=== PATIENT | female | born 1960 | race Caucasian/White ===

== ENCOUNTER 2016-10-02 11:09 | Day surgery (SDC) | payer OTHER ==
[2016-10-02] MEDS ORDERED: ONDANSETRON 4 MG/2 ML VIAL ONE (11:33)
[2016-10-02] MEDS ORDERED: LACTATED RINGERS 1,000 ML IV ONE ×2 (11:37→14:20)
[2016-10-02] MEDS ORDERED: MIDAZOLAM 2 MG/2 ML VIAL IVP ONE (14:09)
[2016-10-02] MEDS ORDERED: fentaNYL 100 MCG/2 ML VIAL IVP ONE (14:09)
== END 2016-10-02 11:10 | disposition home or self-care (01) ==
PROC: 0DBP8ZX Excision of Rectum, Via Natural or Artificial Opening Endoscopic, Diagnostic (ICD-10-PCS; 2016-10-02)
PROC: 0DBH8ZX Excision of Cecum, Via Natural or Artificial Opening Endoscopic, Diagnostic (ICD-10-PCS; principal; 2016-10-02 13:30)
DX: Z12.11 Encounter for screening for malignant neoplasm of colon (principal); D12.0 Benign neoplasm of cecum; K62.1 Rectal polyp; K57.30 Diverticulosis of large intestine without perforation or abscess without bleeding; K64.8 Other hemorrhoids; Z80.0 Family history of malignant neoplasm of digestive organs; F17.210 Nicotine dependence, cigarettes, uncomplicated; E03.9 Hypothyroidism, unspecified
CPT/HCPCS: 45380; J7120

== ENCOUNTER 2017-01-31 12:01 | Outpatient (CLI) | payer OTHER ==
--- NOTE | 2017-01-31 15:54 | XRAY Report ---
TWO VIEW CHEST: 01/31/2017 CLINICAL INDICATION: Cough. FINDINGS: Frontal and lateral views of the chest are compared to previous films of 04/14/2015. The cardiac silhouette is within normal limits. Postoperative changes in the left axilla are stable. The lungs are clear. No effusion or pneumothorax is present. IMPRESSION: NORMAL CHEST, UNCHANGED. JOB #: [id number] EXT JOB #:[id number]
== END 2017-01-31 12:02 | disposition home or self-care (01) ==
LOC: DI.S 12:01
PROVIDERS: ATTEND Physician Assistant
DX: R05 Cough (principal); F17.200 Nicotine dependence, unspecified, uncomplicated
CPT/HCPCS: 71020

== ENCOUNTER 2017-11-14 12:02 | Outpatient (CLI) | payer OTHER ==
--- NOTE | 2017-11-14 14:28 | CT Report ---
Procedure Date: 11/14/2017 Accession Number: [id number] / [id number] Procedure: CT - Sinuses CPT Code: FULL RESULT: EXAM: Sinuses 11/14/2017 12:46 PM CLINICAL INDICATION: Headache, sinusitis COMPARISON: None TECHNIQUE: Axial CT images of the paranasal sinuses were obtained without oral or intravenous contrast. Sagittal and coronal reconstructions were performed. FINDINGS: There is minimal mucosal thickening in the left maxillary sinus posteriorly. The remaining paranasal sinuses are unremarkable. No mucosal thickening or air-fluid level is appreciated. No osseous destruction is seen. The septum is midline. The ostiomeatal units are patent bilaterally. IMPRESSION: Minimal left maxillary mucosal thickening. CT DOSE REDUCTION STATEMENT In accordance with CT protocol optimization, one or more of the following were used for this exam: automated exposure control, adjustment of mA and or KV based on patient size, or use of iterative reconstructive technique.
== END 2017-11-14 12:03 | disposition home or self-care (01) ==
LOC: DI 12:02
PROVIDERS: ATTEND Internal Medicine
DX: J01.90 Acute sinusitis, unspecified (principal); R51 Headache
CPT/HCPCS: 70486

== ENCOUNTER 2019-04-25 13:40 | Outpatient (CLI) | payer OTHER ==
--- NOTE | 2019-04-28 11:06 | Mammography Report ---
Reason: SCREENING MAMMO Procedure Date: 04/25/2019 Accession Number: [id number] / [id number] Procedure: MGS - Screening Mammo Dig Bilat CPT Code: Final Report FULL RESULT: EXAM: Screening Mammo Dig Bilat DATE: 04/25/2019 2:05 PM CLINICAL HISTORY: The patient is an asymptomatic 58-year-old female. Second degree family history of breast cancer. TECHNIQUE: (B) - Bilateral CC and MLO views were obtained. COMPARISON: 04/10/2017, 11/29/2013 and 12/14/2011 PARENCHYMAL PATTERN: (A) - The breasts demonstrate scattered fibroglandular densities bilaterally. FINDINGS: RIGHT BREAST: Technical limitations (nipple out of profile). LEFT BREAST: There are no suspicious masses, calcifications, or areas of distortion. IMPRESSION: RIGHT BREAST: Technical Repeat. BI-RADS Category 0 LEFT BREAST: Negative examination. BI-RADS category 1. RECOMMENDATION: RIGHT BREAST: The patient should be recalled to undergo repeat CC and MLO views - with nipple in profile. LEFT BREAST: Routine screening mammography. BI-RADS CATEGORY: (0) - Incomplete Examination - need additional evaluation. STANDARD QUALIFYING STATEMENTS: 1. This examination was not reviewed with the aid of Computer-Aided Detection (CAD). 2. A negative or benign imaging report should not preclude biopsy if clinically suspicious findings are present. 3. Dense breasts may obscure an underlying neoplasm. 4. This examination was reviewed with the aid of 3D breast imaging (tomosynthesis).
== END 2019-04-25 13:41 | disposition home or self-care (01) ==
LOC: DI.S 13:40
DX: Z12.31 Encounter for screening mammogram for malignant neoplasm of breast (principal); Z80.3 Family history of malignant neoplasm of breast
CPT/HCPCS: 77067

== ENCOUNTER 2019-04-30 12:44 | Outpatient (CLI) | payer OTHER ==
--- NOTE | 2019-04-30 13:48 | CT Report ---
Reason: SCREENING FOR LUNG CA Procedure Date: 04/30/2019 Accession Number: [id number] / [id number] Procedure: CT - Low Dose Lung Cancer Screen CPT Code: Final Report FULL RESULT: EXAM CT LUNG SCREEN EXAM DATE: 04/30/2019 01:13 PM. HISTORY: 58-year-old patient with smoking history. COMPARISON: None. TECHNIQUE: CT examination of the entire thorax without contrast was performed using low-dose technique. Thin section coronal, axial, sagittal and MIP axial images were obtained. In accordance with CT protocol optimization, one or more of the following dose reduction techniques were utilized for this exam: automated exposure control, adjustment of mA and/or KV based on patient size, or use of iterative reconstructive technique. FINDINGS: Nodules: Right upper lobe: 0.6 x 0.4 cm noncalcified solid upper lobe nodule (4/75). Right middle lobe: None. Right lower lobe: None. Left upper lobe: None. Left lower lobe: Linear scarring/atelectasis. No infiltrate or nodule. Emphysema: None. Pleura: Unremarkable. Aorta: Mild aortic calcification. Mediastinum: Unremarkable. Coronary calcifications: Mild left anterior descending coronary calcification. Other pulmonary findings: None. Other extrapulmonary findings: Left axillary lymph node dissection clips. IMPRESSION: Lung-RADS ASSESSMENT CATEGORY: 3 - probably benign Probability of malignancy: 1-2% RECOMMENDATION: Recommend follow-up low-dose CT in 6 months. RADIA
== END 2019-04-30 12:45 | disposition home or self-care (01) ==
LOC: DI 12:44
PROVIDERS: ATTEND Physician Assistant
DX: Z12.2 Encounter for screening for malignant neoplasm of respiratory organs (principal); F17.210 Nicotine dependence, cigarettes, uncomplicated

== ENCOUNTER 2019-05-07 13:46 | Outpatient (CLI) | payer OTHER ==
--- NOTE | 2019-05-07 16:04 | Mammography Report ---
Reason: TECHNICAL REPEAT - ROUTINE MAMMO Procedure Date: 05/07/2019 Accession Number: [id number] / [id number] Procedure: MGS - Screening Mammo Dig Bilat CPT Code: Final Report FULL RESULT: EXAM: Screening mammogram - technical repeat - right breast DATE: 05/07/2019 1:55 PM CLINICAL HISTORY: Screening mammogram, recalled for repeat right mammographic views (positioning) TECHNIQUE: (R) - Right CC and MLO views were obtained. PARENCHYMAL PATTERN: (A) - The breast demonstrates scattered fibroglandular densities bilaterally. FINDINGS: There are no suspicious masses, calcifications, or areas of distortion. IMPRESSION: Negative examination. BI-RADS category 1. RECOMMENDATION: (ANNUAL) - Recommend routine annual screening mammography. BI-RADS CATEGORY: (1) - Negative. STANDARD QUALIFYING STATEMENTS: 1. This examination was reviewed with the aid of Computer-Aided Detection (CAD). 2. A negative or benign imaging report should not preclude biopsy if clinically suspicious findings are present. 3. Dense breasts may obscure an underlying neoplasm.
== END 2019-05-07 13:47 | disposition home or self-care (01) ==
LOC: DI.S 13:46
DX: Z12.31 Encounter for screening mammogram for malignant neoplasm of breast (principal)
CPT/HCPCS: 77067

== ENCOUNTER 2021-01-16 13:06 | Outpatient (CLI) | payer OTHER ==
--- NOTE | 2021-01-17 09:22 | Mammography Report ---
BILATERAL DIGITAL SCREENING MAMMOGRAM 3D/2D: 01/16/2021 CLINICAL: Family history of breast cancer. Comparison is made to exams dated: 05/07/2019 mammogram, 04/25/2019 mammogram, 04/10/2017 mammogram, a nd 10/29/2013 mammogram - [facility]. There are scattered fibroglandular elements i n both breasts. There is a focal asymmetry in the left breast at 6 o'clock in the retroareolar region. This is more prominent. No other significant masses, calcifications, or other findings are seen in either breast. IMPRESSION: INCOMPLETE: NEEDS ADDITIONAL IMAGING EVALUATION The focal asymmetry in the left breast is indeterminate. Additional views with possible ultrasound are recommended. This exam was interpreted at Station ID: [id number]. NOTE: For mammograms, a report in lay terms will be sent to the patient. Approximately 15% of breast malignancies will not be visualized mammographically. In the management of a palpable breast mass, a negative mammogram must not discourage biopsy of a clinically suspicious lesion. Electronically Signed By: Ashwin Mott M.D. slc/:01/17/2021 07:54:25 ACR BI-RADS Category 0: Incomplete 3340F PARENCHYMAL PATTERN: (A) - The breast(s) demonstrate(s) scattered fibroglandular densities. BI-RADS CATEGORY: (0) - 0 Mammo and [place] [id number] Immediate follow-up LATERALITY: (B)
== END 2021-01-16 13:07 | disposition home or self-care (01) ==
LOC: DI.S 13:06
DX: Z12.31 Encounter for screening mammogram for malignant neoplasm of breast (principal); R92.8 Other abnormal and inconclusive findings on diagnostic imaging of breast; Z80.3 Family history of malignant neoplasm of breast

== ENCOUNTER 2021-01-29 11:42 | Outpatient (CLI) | payer OTHER ==
[2021-01-29] MEDS ORDERED: IOPAMIDOL-300 50 ML VIAL ONE (12:07)
[2021-01-29] MEDS ORDERED: IOVERSOL 320 50 ML VIAL ONE (12:07)
[2021-01-29 12:39] LABS: ALBUMIN 4.4 g/dL (3.2-5.5); ALBUMIN/GLOBULIN RATIO 1.7 (1.0-2.2); BILIRUBIN,TOTAL 0.8 mg/dL (0.2-1.0); CALCIUM 8.9 mg/dL (8.5-10.3); CREATININE 0.8 mg/dL (0.4-1.0); POTASSIUM 4.1 mmol/L (3.5-5.0)
[2021-01-29] MEDS ORDERED: IOPAMIDOL-300 50 ML VIAL IVP ONE (14:11)
[2021-01-29] MEDS ORDERED: IOVERSOL 320 50 ML VIAL PO ONE (14:12)
--- NOTE | 2021-01-29 16:50 | CT Report ---
PROCEDURE: Abdomen/Pelvis W INDICATIONS: DIARRHEA CONTRAST: IV CONTRAST: Isovue 300 ml: 100 PO CONTRAST: Optiray 320 ml50 TECHNIQUE: After the administration of 100 mL Isovue-300 contrast, 5 mm thick sections acquired from the diaphra gms to the symphysis. 5 mm thick coronal and sagittal reformats were acquired. For radiation dose r eduction, the following was used: automated exposure control, adjustment of mA and/or kV according t o patient size. COMPARISON: None. FINDINGS: Image quality: Excellent. ABDOMEN: Lung bases: Lung bases are clear. Heart size is normal. Solid organs: Liver and spleen are normal in size and enhancement. Gallbladder normal. Biliary sys tem is non dilated. Pancreas enhances normally. No adrenal nodules. Kidneys demonstrate normal siz e and enhancement, without hydronephrosis. Peritoneum and bowel: Bowel loops demonstrate normal wall thickness and caliber. Moderate colonic s tool were noted. Normal appendix. No free fluid or air. Nodes and vessels: No retroperitoneal or mesenteric adenopathy by size criteria. Aorta and inferior vena cava are normal in size. Vascular calcification of the aorta. Miscellaneous: No ventral hernias. PELVIS: Genitourinary: Bladder wall thickness is normal. 4.9 x 4.3 x 4.2 cm solid right adnexal mass. Uteru s is anteverted. Miscellaneous: No inguinal hernias or adenopathy. Bones: No suspicious bony lesions. No vertebral body compression fractures. Left total hip arthrop lasty. Degenerative changes of the right hip. Degenerative changes of the spine. IMPRESSION: 1. No acute intra-abdominal abnormality. 2. Solid 4.9 cm right adnexal mass. Recommend further evaluation with follow-up ultrasound. Reviewed by: Fausto Ortez on 01/29/2021 3:49 PM CRISTIAN Approved by: Fausto Ortez on 01/29/2021 3:49 PM AKBENNIE Station ID: [id number]
== END 2021-01-29 11:43 | disposition home or self-care (01) ==
LOC: DI 11:42
PROVIDERS: ATTEND Nurse Practitioner Family
DX: R19.7 Diarrhea, unspecified (principal); R19.09 Other intra-abdominal and pelvic swelling, mass and lump
CPT/HCPCS: 36415; 74177; 80053; Q9967

== ENCOUNTER 2021-02-09 15:22 | Outpatient (CLI) | payer OTHER ==
--- NOTE | 2021-02-09 16:35 | Ultrasound Report ---
PROCEDURE: Pelvic w/Transvaginal INDICATIONS: PELVIC MASS TECHNIQUE: Real-time scanning was performed of the pelvic organs, with image documentation. Additional endovagi nal scanning was necessary due to incomplete visualization of the adnexal and endometrial structures by transabdominal scanning. COMPARISON: CT abdomen/pelvis 01/29/2021. FINDINGS: No pathologic free abdominal or pelvic fluid. Uterus: Uterus is normal in size at 6.2 x 2.2 x 3.4 cm. The endometrium measures 3 mm in combined t hickness. Ovaries: A 5.2 x 3.6 x 4.9 cm lesion is seen in the right adnexa with dense posterior shadowing that may represent the right ovary versus an adnexal mass. The left ovary measures 1.3 x 0.7 x 1.2 cm, an d appears normal. IMPRESSION: The previously seen solid right adnexal lesion measures approximately 5.2 x 3.6 x 4.9 cm on ultrasoun d with dense posterior shadowing that Limited sonographic evaluation. The right ovary is not definite ly seen separate from this lesion. 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 Reviewed by: Andrey Mao MD on 02/09/2021 4:34 PM PDT Approved by: Andrey Mao MD on 02/09/2021 4:34 PM PDT Station ID: [id number]
== END 2021-02-09 15:23 | disposition home or self-care (01) ==
LOC: DI 15:22
PROVIDERS: ATTEND Nurse Practitioner Family
DX: R93.89 Abnormal findings on diagnostic imaging of other specified body structures (principal)

== ENCOUNTER 2021-02-10 12:26 | Outpatient (CLI) | payer OTHER ==
--- NOTE | 2021-02-11 10:35 | Ultrasound Report ---
LIMITED ULTRASOUND OF LEFT BREAST: 02/10/2021 CLINICAL: Patient returns today to evaluate a focal asymmetry in the left breast. Comparison is made to exams dated: 02/10/2021 mammogram, 01/16/2021 mammogram, 05/07/2019 mammogram, mammogram, 04/10/2017 mammogram, and 10/29/2013 mammogram - [facility]. Color flow and real-time ultrasound of the left breast 12-3 o'clock, and retroareolar regions were p erformed on the areas of interest. Gill scale images of the real-time examination were reviewed. There is a 0.8 cm x 0.3 cm x 0.7 cm hypoechoic structure likely representing a dilated duct in the le ft breast at 1 o'clock in the retroareolar region. This may correlate with mammography findings. Co jacky flow imaging demonstrates that there is no vascularity present. IMPRESSION: PROBABLY BENIGN The 0.8 cm x 0.3 cm x 0.7 cm dilated duct in the left breast is probably benign. Follow-up mammogram and ultrasound in 6 months are recommended. A follow-up mammogram and an ultrasound in 6 months are recommended to demonstrate stability. This exam was interpreted at Station ID: [id number]. Electronically Signed By: Ga Rea M.D. ddmegan/:02/10/2021 14:06:12 Ultrasound BI-RADS: 3 Probably benign BI-RADS CATEGORY: (3) - 3 Mammo and US [id number] 6 month follow-up LATERALITY: (B)
--- NOTE | 2021-02-11 10:35 | Mammography Report ---
UNILATERAL LEFT DIGITAL DIAGNOSTIC MAMMOGRAM 3D/2D: 02/10/2021 CLINICAL: Patient returns today to evaluate a focal asymmetry in the left breast. Comparison is made to exams dated: 01/16/2021 mammogram, 05/07/2019 mammogram, 04/25/2019 mammogram, 1 06/10/2016 mammogram, 10/29/2013 mammogram, and 12/14/2011 mammogram - [facility]. The re are scattered fibroglandular elements in left breast. There is an oval equal density focal asymmetry with an indistinct margin in the left breast at 5 o'cl ock in the retroareolar region. No other significant masses or calcifications are seen in the breast. IMPRESSION: INCOMPLETE: NEEDS ADDITIONAL IMAGING EVALUATION The oval equal density focal asymmetry in the left breast is indeterminate. An ultrasound is recomme nded. Ultrasound will be performed immediately following the current exam. This exam was interpreted at Station ID: [id number]. NOTE: For mammograms, a report in lay terms will be sent to the patient. Approximately 15% of breast malignancies will not be visualized mammographically. In the management of a palpable breast mass, a negative mammogram must not discourage biopsy of a clinically suspicious lesion. Electronically Signed By: Ga Rea M.D. ddp/:02/10/2021 13:21:14 ACR BI-RADS Category 0: Incomplete 3340F PARENCHYMAL PATTERN: (A) - The breast(s) demonstrate(s) scattered fibroglandular densities. BI-RADS CATEGORY: (0) - 0 Ultrasound [id number] Immediate follow-up LATERALITY: (B)
== END 2021-02-10 12:27 | disposition home or self-care (01) ==
LOC: DI 12:26
PROVIDERS: ATTEND Nurse Practitioner Family
DX: R92.8 Other abnormal and inconclusive findings on diagnostic imaging of breast (principal)

== ENCOUNTER 2021-07-04 16:31 | Emergency (ER) | payer OTHER ==
--- NOTE | 2021-07-04 16:57 | ED Physician Documentation ---
PD HPI ABD PAIN - Stated complaint Stated Complaint: S/P SX, ABD PAIN - Chief complaint Chief Complaint: Abd Pain - History obtained from History obtained from: Patient - Additional information Additional information: She had a laparoscopic oophorectomy on Sunday, has not had any bowel movements or flatus since albeit did have some diarrheal discharge last night after taking stool softeners and laxatives. She feels quite bloated and like she cannot get anything out. Denies fevers or chills. Only prior abdominal surgery was liposuction. Pathology is not yet known. Review of Systems Ten Systems: 10 systems reviewed and negative Constitutional: denies: Fever, Chills Cardiac: reports: Reviewed and negative Respiratory: reports: Reviewed and negative PD PAST MEDICAL HISTORY - Past Medical History Cardiovascular: None Respiratory: None Endocrine/Autoimmune: HyPOthyroidism GI: None : None HEENT: None Psych: Anxiety Musculoskeletal: None Derm: Other - Past Surgical History Past Surgical History: No Ortho: Hip replacement HEENT: Tonsil/Adenoidectomy Derm: Skin cancer surgery - Present Medications Home Medications: Ambulatory Orders Medication Instructions Recorded Confirmed Levothyroxine [Synthroid] 50 mcg PO QDAC 09/29/16 10/02/16 Montelukast [Singulair] 10 mg PO DAILY 09/29/16 10/02/16 Lactulose [Generlac] 10 gm PO Q6H PRN #150 ml 07/04/21 Metoclopramide [Reglan] 10 mg PO Q6H PRN #20 tablet 07/04/21 - Allergies Allergies/Adverse Reactions: Allergies Allergy/AdvReac Type Severity Reaction Status Date / Time oxycodone [Oxycodone] AdvReac Intermediate severe Verified 12/13/12 14:53 headache - Social History Does the pt smoke?: Yes Smoking Status: Current every day smoker Does the pt drink ETOH?: Yes (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.) Does the pt have substance abuse?: No - Immunizations Immunizations are current?: No Immunizations: TDAP >10years/unknown - POLST Patient has POLST: No PD ED PE NORMAL - Vitals Vital signs reviewed: Yes - General General: Alert and oriented X 3, Other (He appears uncomfortable and in pain) - HEENT HEENT: PERRL, EOMI - Neck Neck: Supple, no meningeal sign, No bony TTP - Cardiac Cardiac: RRR, No murmur - Respiratory Respiratory: No respiratory distress, Clear bilaterally - Abdomen Abdomen: Soft, Other (Bowel sounds, mild diffuse tenderness without peritoneal signs, laparoscopic incisions are dressed with small heart-shaped bandages.) - Back Back: No CVA TTP, No spinal TTP - Derm Derm: Normal color, Warm and dry - Extremities Extremities: No edema, No calf tenderness / cord - Neuro Neuro: Alert and oriented X 3, Normal speech Results - Vitals Vitals: Vital Signs - 24 hr 07/04/21 07/04/21 16:41 19:00 Temperature 36.5 C Heart Rate 73 94 Respiratory 18 16 Rate Blood Pressure 145/51 H 120/58 L O2 Saturation 100 99 Oxygen O2 Source Room air - Labs Labs: Laboratory Tests 07/04/21 07/04/21 17:18 17:18 WBC 5.7 RBC 3.69 L Hgb 11.1 L Hct 34.0 L MCV 92.1 MCH 30.1 MCHC 32.6 RDW 12.6 Plt Count 227 MPV 9.6 Neut # (Auto) 3.3 Lymph # (Auto) 1.6 [place] # (Auto) 0.5 Eos # (Auto) 0.2 Baso # (Auto) 0.0 Absolute Nucleated RBC 0.00 Nucleated RBC % 0.0 Sodium 140 Potassium 3.9 Chloride 103 Carbon Dioxide 28 Anion Gap 9.0 BUN 13 Creatinine 1.0 Estimated GFR (MDRD) 56 L Glucose 93 Calcium 9.0 PD MEDICAL DECISION MAKING - ED course ED course: 60-year-old woman with postoperative ileus versus SBO. CT imaging negative for SBO and she was feeling better after some IV fluids, Toradol, and Reglan. She kept fluids down and was prescribed some more Reglan as well as a stronger laxative than what she was taking at home. Departure - Departure Disposition: Home, Self Care Clinical Impression: Postoperative ileus Condition: Good Record reviewed to determine appropriate education?: Yes Instructions: Ileus Prescriptions: Lactulose [Generlac] 10 gm PO Q6H PRN #150 ml PRN Reason: Constipation Metoclopramide [Reglan] 10 mg PO Q6H PRN #20 tablet PRN Reason: nausea or headache Comments: Your prescription should be waiting for you tomorrow at [facility] in [place]. I would do a clear liquid diet for the next 24 hours, after that you can slowly get back to a regular diet. Return for new or worsening symptoms. Follow-up with your surgeon as scheduled, but I would call her tomorrow and let her know that you were here tonight. You can let her know that a CAT scan of your belly was basically normal as read by the radiologist, that said to my eye it did show excessive fluid in the gastrium for which we gave you IV Reglan and a prescription for that as well. Discharge Date/Time: 07/04/21 19:19
[2021-07-04] MEDS ORDERED: IOVERSOL 320 100 ML VIAL IVP ONE (17:20)
[2021-07-04] MEDS: SODIUM CHLORIDE 0.9% 1,000 ML IV STA (17:24)
[2021-07-04] MEDS: KETOROLAC 15 MG/ML VIAL IVP STA (17:24)
[2021-07-04 17:27] LABS: BASOPHILS % (AUTO) 0.7 %; EOSINOPHILS # (AUTO) 0.2 10^3/uL (0.0-0.7); HGB - HEMOGLOBIN 11.1 g/dL (12.0-16.0); LYMPHOCYTES # (AUTO) 1.6 10^3/uL (1.5-3.5); LYMPHOCYTES % (AUTO) 28.3 %; MEAN CORPUSCULAR HEMOGLOBIN 30.1 pg (27.0-31.0); MEAN CORPUSCULAR HGB CONC 32.6 g/dL (32.0-36.0); MEAN CORPUSCULAR VOLUME 92.1 fL (81.0-99.0); MEAN PLATELET VOLUME 9.6 fL (7.9-10.8); MONOCYTES # (AUTO) 0.5 10^3/uL (0.0-1.0); MONOCYTES % (AUTO) 9.4 %; NEUTROPHILS # (AUTO) 3.3 10^3/uL (1.5-6.6); NEUTROPHILS % (AUTO) 58.4 %; PLT - PLATELET COUNT 227 10^3/uL (130-450); RED BLOOD COUNT 3.69 10^6/uL (4.20-5.40); RED CELL DISTRIBUTION WIDTH 12.6 % (12.0-15.0); WHITE BLOOD COUNT 5.7 x10^3/uL (4.8-10.8)
[2021-07-04 17:37] LABS: POTASSIUM 3.9 mmol/L (3.5-5.0)
[2021-07-04] MEDS: IOVERSOL 320 100 ML VIAL IVP ONE (18:18)
[2021-07-04] MEDS: METOCLOPRAMIDE 10 MG/2 ML VIAL IVP STA (18:20)
--- NOTE | 2021-07-04 18:58 | CT Report ---
PROCEDURE: Abdomen/Pelvis W INDICATIONS: IV only, post op ileus vs sbo CONTRAST: IV CONTRAST: Optiray 320 ml: 100 PO CONTRAST: *NO PO CONTRAST TECHNIQUE: After the administration of contrast, 5 mm thick sections acquired from the diaphragms to the sym physis. 5 mm thick coronal and sagittal reformats were acquired. For radiation dose reduction, the following was used: automated exposure control, adjustment of mA and/or kV according to patient size . COMPARISON: 01/29/2021 FINDINGS: Image quality: Excellent. ABDOMEN: Lung bases: Linear atelectasis in left lung base. The lung bases are otherwise clear. Heart size is normal. Solid organs: Liver and spleen are normal in size and enhancement. Gallbladder is normal Biliary s ystem is non dilated. Pancreas enhances normally. No adrenal nodules. Kidneys demonstrate normal s ize and enhancement, without hydronephrosis. Peritoneum and bowel: Bowel loops demonstrate normal wall thickness and caliber. No free fluid or a ir. The appendix is normal. Nodes and vessels: No retroperitoneal or mesenteric adenopathy by size criteria. Aorta and inferior vena cava are normal in size. The aorta has atherosclerotic calcifications. Miscellaneous: No ventral hernias. PELVIS: Genitourinary: Bladder wall thickness is normal. The patient is status post resection of a previous ly described tumor which was seen on 01/29/2021. There is mild inflammation in the right pelvis consis tent with recent surgery. No abscess. A few small foci of free air are seen in the right pelvis consi stent with recent surgery. Miscellaneous: No inguinal hernias or adenopathy. Bones: No suspicious bony lesions. No vertebral body compression fractures. IMPRESSION: Postoperative changes in the right pelvis with no acute abnormality or postoperative com plication identified. Reviewed by: Blaze Rodgers on 07/04/2021 6:57 PM PST Approved by: Blaze Rodgers on 07/04/2021 6:57 PM PST Station ID: [id number]
[2021-07-04 19:17] VITALS: BP 120/58
== END 2021-07-04 19:19 | disposition home or self-care (01) ==
LOC: ED 16:31
DX: K91.89 Other postprocedural complications and disorders of digestive system (principal); K56.7 Ileus, unspecified; Y83.8 Other surgical procedures as the cause of abnormal reaction of the patient, or of later complication, without mention of misadventure at the time of the procedure; Z90.721 Acquired absence of ovaries, unilateral; F17.200 Nicotine dependence, unspecified, uncomplicated
CPT/HCPCS: 36415; 74177; 80048; 85025; 96374; 96375; 99283; 99284; J2765; Q9967

== ENCOUNTER 2022-10-25 07:47 | Day surgery (SDC) | payer OTHER ==
[2022-10-25] MEDS ORDERED: LACTATED RINGERS 1,000 ML IV ONE ×2 (08:14→09:59)
--- NOTE | 2022-10-25 09:26 | ANESTHESIA ---
Pre-Anesthesia VS, & Labs - Diagnosis screening - Procedure colonoscopy Vital Signs: Temp Pulse Resp BP Pulse Ox O2 Flow Rate 36 C L 65 15 113/66 100 10/25/22 07:49 10/25/22 07:49 10/25/22 07:49 10/25/22 07:49 10/25/22 07:49 Height: 5 ft 6 in Weight (kg): 80.6 kg Body Mass Index: 28.6 BMI Classification: Overweight - NPO >8 hours - Is Patient ?: No Home Medications and Allergies Home Medications: Ambulatory Orders buPROPion [Wellbutrin Xl] 150 mg PO DAILY 10/24/22 Levothyroxine [Synthroid] 50 mcg PO QDAC 09/29/16 buPROPion [Wellbutrin Xl] 150 mg PO DAILY 10/24/22 Allergies/Adverse Reactions: Allergies Allergy/AdvReac Type Severity Reaction Status Date / Time oxycodone [Oxycodone] AdvReac Intermediate severe Verified 12/13/12 14:53 headache Anes History & Medical History - Anesthetic History Anesthesia Complications: reports: No previous complications Family history of Anesthesia Complications: Denies Family history of Malignant Hyperthermia: Denies - Medical History Cardiovascular: reports: Murmur Pulmonary: reports: None Gastrointestinal: reports: None Urinary: reports: None Musculoskeletal: reports: None Endocrine/Autoimmune: reports: HyPOthyroidism Skin: reports: Other Smoking Status: Current every day smoker - Surgical History General: reports: Colonoscopy Eyes Ears Nose Throat (EENT): reports: Tonsil/Adenoidectomy Orthopedic: reports: Hip replacement Dermatologic: reports: Skin cancer surgery Exam General: Alert, Oriented x3, Cooperative Dental: WNL Mouth Openin Fingerbreadth Neck Mobility: Normal Mallampati classification: II Thyromental Distance: 4-6 cm Respiratory: Lungs clear Cardiovascular: Regular rate Plan Anesthesia Type: General, Total IV Consent for Procedure(s) Verified and Reviewed: Yes Code Status: Attempt Resuscitation ASA classification: 2-Mild systemic disease Is this case an emergency?: No
[2022-10-25] MEDS ORDERED: PROPOFOL 500 MG/50 ML 500 MG/50 ML VIAL ONE (09:32)
[2022-10-25 10:18] VITALS: BP 94/56
--- NOTE | 2022-10-25 14:21 | ANESTHESIA POST OP EVALUATION ---
Anesthesia Post Eval - Post Anesthesia Eval Vitals: Last Vital Signs Temp 36.1 C L 10/25/22 10:13 Pulse 67 10/25/22 10:13 Resp 16 10/25/22 10:13 BP 94/56 L 10/25/22 10:13 Pulse Ox 100 10/25/22 10:13 O2 Flow Rate CV Function Including HR & BP: Stable Pain Control: Satisfactory Nausea & Vomiting: Negative Mental Status: Baseline Respiratory Status: Airway Patent Hydration Status: Satisfactory Anesthesia Complications: None
== END 2022-10-25 07:48 | disposition home or self-care (01) ==
LOC: SDS 07:47
PROVIDERS: ATTEND Surgery
DX: Z12.11 Encounter for screening for malignant neoplasm of colon (principal); Z86.010 Personal history of colon polyps; Z87.19 Personal history of other diseases of the digestive system; Z80.0 Family history of malignant neoplasm of digestive organs; K57.30 Diverticulosis of large intestine without perforation or abscess without bleeding; K64.1 Second degree hemorrhoids; Z87.891 Personal history of nicotine dependence; F41.8 Other specified anxiety disorders
CPT/HCPCS: 45378; J7120

== ENCOUNTER 2023-04-24 20:40 | Emergency (ER) | payer OTHER ==
[2023-04-24 21:03] VITALS: BP 115/87; O2SAT 98
[2023-04-24] MEDS ORDERED: BUFFERED LIDOCAINE 10 ML SYRINGE SUBQ STA (21:24)
--- NOTE | 2023-04-24 21:24 | ED Physician Documentation ---
PD HPI HEENT - Stated complaint Stated Complaint: PIERCING STUCK IN EAR - Chief complaint Chief Complaint: Heent - History obtained from History obtained from: Patient (She has multiple piercings in the ears and there is a piercing stuck in the helical kaylie of the right ear. Been there since this afternoon.) PD PAST MEDICAL HISTORY - Past Medical History Past Medical History: Yes Cardiovascular: Murmur Respiratory: None Endocrine/Autoimmune: HyPOthyroidism GI: None : None HEENT: None Psych: Anxiety Musculoskeletal: None Derm: Other - Past Surgical History Past Surgical History: Yes General: Colonoscopy Ortho: Hip replacement HEENT: Tonsil/Adenoidectomy Derm: Skin cancer surgery - Present Medications Home Medications: Ambulatory Orders Medication Instructions Recorded Confirmed Levothyroxine [Synthroid] 50 mcg PO QDAC 09/29/16 04/24/23 buPROPion [Wellbutrin Xl] 150 mg PO DAILY 10/24/22 04/24/23 cephALEXin [Keflex] 500 mg PO Q6H #20 cap 04/24/23 - Allergies Allergies/Adverse Reactions: Allergies Allergy/AdvReac Type Severity Reaction Status Date / Time No Known Drug Allergies Allergy Verified 04/24/23 20:59 - Social History Does the pt smoke?: Yes Smoking Status: Current every day smoker Does the pt drink ETOH?: Yes Does the pt have substance abuse?: No - Immunizations Immunizations are current?: No Immunizations: TDAP >10years/unknown - POLST Patient has POLST: No PD ED PE NORMAL - Vitals Vital signs reviewed: Yes - General General: Alert and oriented X 3, No acute distress - HEENT HEENT: Other (There is a stuck edematous piercing in the helical kaylie of the right ear and she does not tolerate bedside attempts at removal without anesthesia.) - Neck Neck: Supple, no meningeal sign, No bony TTP Results - Vitals Vitals: Vital Signs - 24 hr 04/24/23 20:54 Temperature 36.3 C L Heart Rate 90 Respiratory 18 Rate Blood Pressure 115/87 H O2 Saturation 98 Oxygen O2 Source Room air Procedures - General procedure General procedure: With some local anesthesia I was able to remove the stuck piercing without significant trauma. Departure - Departure Disposition: 01 Home, Self Care Clinical Impression: Piercing in right external ear Condition: Good Record reviewed to determine appropriate education?: Yes Instructions: ED Foreign Body Soft Tissue Removed Prescriptions: cephALEXin [Keflex] 500 mg PO Q6H #20 cap Comments: I was able to remove the piercing. There is signs of mild infection so I am pu tting on a few days worth of antibiotics. Return for new or worsening symptoms. Forms: PCP List
[2023-04-24] MEDS ORDERED: CEPHALEXIN 250 MG Prepack 8 CAP BOTTLE PO STA (21:32)
== END 2023-04-24 21:50 | disposition home or self-care (01) ==
LOC: ED 20:40
DX: T16.1XXA Foreign body in right ear, initial encounter (principal); W44.8XXA Other foreign body entering into or through a natural orifice, initial encounter; L08.9 Local infection of the skin and subcutaneous tissue, unspecified; F17.200 Nicotine dependence, unspecified, uncomplicated
CPT/HCPCS: 69200; 99282; 99283

== ENCOUNTER 2023-04-30 13:01 | Outpatient (CLI) | payer OTHER ==
--- NOTE | 2023-04-30 15:23 | XRAY Report ---
PROCEDURE: Knee 2 View RT INDICATIONS: PAIN IN RIGHT KNEE TECHNIQUE: 2 views of the knee(s) were acquired. COMPARISON: None. FINDINGS: Bones: No fractures or dislocations. No suspicious bony lesions. Departmental joint space narrowing. Osteophytosis about the lateral tibial femoral compartment. Soft tissues: No knee joint effusion. No suspicious soft tissue calcifications or masses. IMPRESSION: Mild tricompartmental osteoarthritis. Kellgren-Gama scale of osteoarthritis: 1-2. Reviewed by: Guzman Gamboa on 04/30/2023 3:22 PM PST Approved by: Guzman Gamboa on 04/30/2023 3:22 PM PST Station ID: [id number]
== END 2023-04-30 23:59 | disposition home or self-care (01) ==
LOC: DI.S 13:01
PROVIDERS: ATTEND Nurse Practitioner
DX: M17.11 Unilateral primary osteoarthritis, right knee (principal)

== ENCOUNTER 2024-02-15 13:01 | Outpatient (CLI) | payer BC ==
[2024-02-15 19:55] LABS: BASOPHILS # (AUTO) 0.1 10^3/uL (0.0-0.1); BASOPHILS % (AUTO) 0.9 %; EOSINOPHILS # (AUTO) 0.2 10^3/uL (0.0-0.7); EOSINOPHILS % (AUTO) 2.3 %; HCT - HEMATOCRIT 36.3 % (37.0-47.0); HGB - HEMOGLOBIN 11.4 g/dL (12.0-16.0); LYMPHOCYTES # (AUTO) 1.7 10^3/uL (1.5-3.5); LYMPHOCYTES % (AUTO) 22.4 %; MEAN CORPUSCULAR HEMOGLOBIN 28.6 pg (27.0-31.0); MEAN CORPUSCULAR HGB CONC 31.4 g/dL (32.0-36.0); MEAN CORPUSCULAR VOLUME 91.2 fL (81.0-99.0); MEAN PLATELET VOLUME 10.1 fL (7.9-10.8); MONOCYTES # (AUTO) 0.6 10^3/uL (0.0-1.0); MONOCYTES % (AUTO) 8.5 %; NEUTROPHILS # (AUTO) 4.8 10^3/uL (1.5-6.6); NEUTROPHILS % (AUTO) 65.5 %; PLT - PLATELET COUNT 329 10^3/uL (130-450); RED BLOOD COUNT 3.98 10^6/uL (4.20-5.40); RED CELL DISTRIBUTION WIDTH 14.6 % (12.0-15.0); WHITE BLOOD COUNT 7.4 x10^3/uL (4.8-10.8)
[2024-02-15 20:12] LABS: ALBUMIN 4.2 g/dL (3.2-5.5); ALBUMIN/GLOBULIN RATIO 1.6 (1.0-2.2); ALKALINE PHOSPHATASE 70 IU/L (42-121); ALT ALANINE AMINOTRANSFERASE 16 IU/L (10-60); AST ASPARTATE AMINOTRANSFERASE 16 IU/L (10-42); BILIRUBIN,TOTAL 0.5 mg/dL (0.2-1.0); BUN - BLOOD UREA NITROGEN 15 mg/dL (6-20); CALCIUM 9.1 mg/dL (8.5-10.3); CARBON DIOXIDE - CO2 30 mmol/L (21-32); CHLORIDE 101 mmol/L (101-111); CHOL/HDL RATIO 2.8 (<4.4); CHOLESTEROL 194 mg/dL; CREATININE 0.8 mg/dL (0.6-1.3); GFR - MDRD 72 (>89); GLUCOSE 82 mg/dL (74-104); HDL CHOLESTEROL 69 mg/dL; LDL CHOLESTEROL,CALCULATED 84 mg/dL; LDL/HDL RATIO 1.2 (<4.4); POTASSIUM 4.1 mmol/L (3.5-4.5); SODIUM 137 mmol/L (135-145); TOTAL PROTEIN 6.8 g/dL (6.4-8.9); TRIGLYCERIDES 206 mg/dL; VLDL CHOLESTEROL 41 mg/dL
[2024-02-15 20:25] LABS: THYROID STIMULATING HORMONE 3.61 uIU/mL (0.34-5.60)
[2024-02-15 20:45] LABS: ESTIMATED AVERAGE GLUCOSE 105 mg/dL (70-100); HEMOGLOBIN A1c% 5.3 % (4.27-6.07)
== END 2024-02-15 13:02 | disposition home or self-care (01) ==
LOC: LAB.S 13:01
PROVIDERS: ATTEND Nurse Practitioner Acute Care
DX: Z13.228 Encounter for screening for other metabolic disorders (principal); Z13.220 Encounter for screening for lipoid disorders; Z13.29 Encounter for screening for other suspected endocrine disorder; Z13.0 Encounter for screening for diseases of the blood and blood-forming organs and certain disorders involving the immune mechanism
CPT/HCPCS: 36415; 80053; 80061; 83036; 83721; 84443; 85025

== ENCOUNTER 2024-02-18 13:15 | Outpatient (CLI) | payer BC ==
--- NOTE | 2024-02-18 18:13 | CT Report ---
PROCEDURE: Lung Cancer Screen INDICATIONS: SCREENING FOR LUNG CA TECHNIQUE: A CT scan of the chest was performed. Intravenous contrast media was not administered. Images were re corded and evaluated at appropriate window settings. Reformats: axial MIP of the chest, coronal and s agittal. For radiation dose reduction, the following was used: automated exposure control, adjustment of mA and/or kV according to patient size. COMPARISON: 04/30/2019 FINDINGS: Image quality: Diagnostic. Lungs and pleura: No pleural effusions. No pneumothorax. Stable 5 x 4 mm right upper lobe pulmonary nodule (56 per series 4). No new nodules in the right hemithorax. There is a new, large mass in the p osterior, inferior aspect of the left upper lobe measuring approximately 7.3 x 5.7 cm in axial cross sectional dimension and approximately 8.9 cm in craniocaudal dimension. This mass extends from the le ft perihilar region to the pleura of the left upper lobe. There is mass effect and encasement of the traversing airways of the posterior left upper lobe. Distal atelectasis seen. There is suspected left hilar adenopathy. Multiple new prominent mediastinal lymph nodes predominantly in the AP window are visualized. No septal thickening or nodularity. Mediastinum: Heart size is normal. No pericardial effusion. No large vessel abnormality. Suspected le ft hilar adenopathy. Prominent left mediastinal lymph node nodes. No right-sided hilar adenopathy. Chest wall and lower neck: Thyroid is unremarkable. No axillary or supraclavicular adenopathy by size . Bones: No aggressive osseous abnormality. Upper Abdomen: Unremarkable. IMPRESSION: New lobulated left upper lobe mass measuring 7.3 x 5.7 x 8.9 cm abutting the left major fissure and e xtending from the left hilum to the left pleura. There is suspected left hilar adenopathy. Multiple p rominent left mediastinal lymph nodes are also present. There is encasement of traversing airways wit h associated distal atelectasis. Stable 5 x 4 mm right upper lobe pulmonary nodule. Lung RAD: 4X - Highly Suspicious. Recommendation: Immediate chest CT with or without contrast, PET-CT and/or tissue sampling depending on the probability of malignancy and comorbidities. PET-CT may be used when there is a "e 8 mm solid component. Non-Lung Significant Findings: None. Reviewed by: Fred Jennings MD on 02/18/2024 5:12 PM C[facility]IAN Approved by: Fred Jennings MD on 02/18/2024 5:12 PM CRISTIAN Station ID: [id number]
== END 2024-02-18 13:16 | disposition home or self-care (01) ==
LOC: DI 13:15
PROVIDERS: ATTEND Nurse Practitioner Acute Care
DX: Z12.2 Encounter for screening for malignant neoplasm of respiratory organs (principal); R91.8 Other nonspecific abnormal finding of lung field; R91.1 Solitary pulmonary nodule; R59.0 Localized enlarged lymph nodes; J98.11 Atelectasis

== ENCOUNTER 2024-02-19 16:54 | Outpatient (CLI) | payer BC ==
[2024-02-19] MEDS ORDERED: iohexoL-300 100 ML VIAL ONE (17:01)
[2024-02-19] MEDS: iohexoL-300 100 ML VIAL IVP ONE (17:21)
--- NOTE | 2024-02-19 19:44 | CT Report ---
PROCEDURE: Chest W INDICATIONS: HILAR LUNG MASS CONTRAST: 100ml [id number] TECHNIQUE: After the administration of intravenous contrast, a CT scan of the chest was performed. Images were recorded and evaluated at appropriate window settings. Reformats: axial MIP of the chest, coronal and sagittal. For radiation dose reduction, the following was used: automated exposure control, adjustme nt of mA and/or kV according to patient size. COMPARISON: Chest CT 02/18/2024. Abdominal CT 06/23/19302021. FINDINGS: Image quality: Diagnostic. Chest wall and lower neck: No thyroid nodule which requires sonographic follow up. No breast mass. No axillary or supraclavicular adenopathy by size. Lungs and pleura: Left upper lobe/lingula mass with broad contact along the lateral pleura and medias tinum, measuring 7.2 x 5.5 cm. The mass crosses the major pleura into the right lower lobe 4 mm solid nodule in the right middle lobe (series 4, image 53). Mediastinum: Heart size is normal. No pericardial effusion. No large vessel abnormality. Prominent le ft-sided mediastinal nodes in the prevascular station, index nodule measures 9 mm short axis (series 2, image 30). There is a soft tissue mass associated with the atrial septum, measuring approximately 5.8 x 2.9 cm. Bones: Dense bony lesion in the T8 vertebral body with indeterminate attenuation [610 Hounsfield unit ). Upper Abdomen: Ill-defined 1 cm hypoattenuating lesion in the right hepatic lobe (series 2, image 94) . IMPRESSION: Left upper lobe/lingula mass with broad contact along the lateral pleura, mediastinum measuring 7.2 x 5.5 cm. 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 Prominent left-sided mediastinal lymph nodes. 4 mm solid nodule in the right middle lobe, probably benign, less likely contralateral metastasis. Ill-defined 1 cm hypoattenuating lesion in the right hepatic lobe. Differential includes metastatic d isease, so MRI with contrast should be considered. Soft tissue mass associated with the atrial septum, measuring approximately 5.8 x 2.9 cm. This probab ly represents a septal lipoma but echocardiogram should be considered for complete characterization. 8 mm dense bony lesion in the T8 vertebral body, which does not meet Hounsfield unit criteria to be c haracterized as a bone island. Close attention on follow-up as this could represent osseous metastati c disease. Reviewed by: Guzman Gamboa MD on 02/19/2024 7:42 PM PDT Approved by: Guzman Gamboa MD on 02/19/2024 7:42 PM PDT Station ID: [id number]
== END 2024-02-19 16:55 | disposition home or self-care (01) ==
LOC: DI 16:54
PROVIDERS: ATTEND Nurse Practitioner Acute Care
DX: R91.8 Other nonspecific abnormal finding of lung field (principal); R59.0 Localized enlarged lymph nodes; K76.9 Liver disease, unspecified; M89.9 Disorder of bone, unspecified; I51.9 Heart disease, unspecified
CPT/HCPCS: 71260; Q9967